=== PATIENT | male | born 1950 | race Caucasian/White ===

== ENCOUNTER 2020-03-14 23:43 | Emergency (ER) | payer MEDICARE, OTHER ==
[~2020-03-14 23:43] MED LIST: AMLODIPINE BESY10 MG PO; CLARITIN10 M2 PO; ECOTRIN81 MG PO; ELIQUIS2.5 MG PO; FLEXERIL 10 MG10 MG PO; GLUCOPHAGE500 MG PO; IMDUR ER TAB 3030 MG PO; K-DUR TAB 10 M10 MEQ PO; LASIX40 MG PO; LOPRESSOR 25 MG25 MG PO; MOBIC15 MG PO; MULTIVITAMINS1 EAC1 PO; PRIMIDONE50 MG PO; PRINIVIL5 MG PO; TESTOSTERON100 MG/ML IM; VENTOLIN HFA 66.7 GM INH; ZANTAC150 MG PO; ZITHROMAX250 MG PO
[2020-03-15 00:22] LABS: HEMOGLOBIN 14.8 gm/dl (14.0-17.5); RED BLOOD COUNT 4.46 M/UL (4.20-5.50); WHITE BLOOD COUNT 10.9 K/UL (4.5-11.0)
[2020-03-15] MEDS ORDERED: PERCOCET 5/325 T1 EA PO (01:10)
[2020-03-15] MEDS ORDERED: FLOMAX 0.4 MG0.4 MG PO (01:10)
[2020-03-15] MEDS ORDERED: ZOFRAN ODT 4 MG4 MG GT (01:10)
== END 2020-03-15 01:50 | disposition home or self-care (01) ==
LOC: ER1 23:43
PROVIDERS: Family Medicine
DX: N13.2 Hydronephrosis with renal and ureteral calculous obstruction (principal); E11.22 Type 2 diabetes mellitus with diabetic chronic kidney disease; N18.9 Chronic kidney disease, unspecified; Z79.84 Long term (current) use of oral hypoglycemic drugs; Z86.79 Personal history of other diseases of the circulatory system
CPT/HCPCS: 36415; 80053; 81001; 85025; 87086; 96374; 96375; 99284; J2270; J2405

== ENCOUNTER → 2020-03-20 | Outpatient (CLI) | payer MEDICARE, OTHER ==
[~2020-03-20] MED LIST changes: +FLOMAX 0.4 MG0.4 MG PO; +PERCOCET 5/325 T1 EA PO; +ZOFRAN ODT 4 MG4 MG GT
== END ==
LOC: LAB 16:29
DX: N20.0 Calculus of kidney (principal); Z87.442 Personal history of urinary calculi
CPT/HCPCS: 74018; 82565

== ENCOUNTER → 2020-05-30 | Outpatient (CLI) | payer MEDICARE, OTHER | LOC: CT 07:57 | DX: U07.1 COVID-19 (principal) | CPT/HCPCS: Q9967 ==

== ENCOUNTER → 2020-11-28 | Outpatient (CLI) | payer MEDICARE, OTHER ==
[2020-11-28 09:42] LABS: HEMOGLOBIN 14.5 gm/dl (14.0-17.5); RED BLOOD COUNT 4.47 M/UL (4.20-5.50); WHITE BLOOD COUNT 7.7 K/UL (4.5-11.0)
[2020-11-28 10:07] LABS: BUN/CREATININE RATIO 21 (0-10)
== END ==
LOC: ECHO 08:30 → NM 09:30
PROVIDERS: Internal Medicine Cardiovascular Disease
DX: I10 Essential (primary) hypertension (principal); E11.9 Type 2 diabetes mellitus without complications
CPT/HCPCS: ECHO; 36415; 78452; 80053; 80061; 83036; 83735; 84439; 84443; 85025; 93017; 93306; J2785

== ENCOUNTER → 2021-01-22 | Outpatient (CLI) | payer MEDICARE, OTHER | LOC: HEART 5 15:57 | DX: I49.5 Sick sinus syndrome (principal) ==

== ENCOUNTER → 2021-06-27 | Outpatient (CLI) | payer OTHER ==
[~2021-06-27] MED LIST changes: +ALDACTONE 25MG25 MG PO; +AMLODIPINE BESYL5 MG PO; +CLINDAMYCIN HC300 MG PO; +CYCLOBENZAPRINE10 MG PO; +FAMOTIDINE20 MG PO; +FARXIGA5 MG PO; +HYDROCODON-ACE1 EAC4 PO; +JANUVIA100 MG PO; +LEVOFLOXACIN500 MG PO; +LOSARTAN POTAS100 MG PO; +MELOXICAM15 MG PO; +MULTI-VITAMIN1 EACH PO; +POTASSIUM CHLO10 MEQ PO; +PRAVASTATIN SOD40 MG PO
== END ==
LOC: RAD 09:15
DX: R06.02 Shortness of breath (principal)
CPT/HCPCS: 71046

== ENCOUNTER → 2021-09-07 | Outpatient (CLI) | payer OTHER | LOC: EXRD 10:42 | DX: R55 Syncope and collapse (principal); R42 Dizziness and giddiness; I65.23 Occlusion and stenosis of bilateral carotid arteries | CPT/HCPCS: 93880 ==